=== PATIENT | female | born 1995 | race African-American/Black ===

== ENCOUNTER 2020-07-25 11:33 | Emergency (ER) | payer MEDICAID, OTHER ==
[~2020-07-25] VITALS: Ht 154.9 cm; Wt 83.5 kg
[2020-07-25 12:06] LABS: Urine Bacteria FEW /hpf (None Seen); Urine Blood Negative /uL (Negative); Urine Mucus FEW (None Seen); Urine Specific Gravity 1.024 (1.001-1.035); Urine WBC 1 /hpf (0 - 5)
[2020-07-25 16:50] VITALS: BP 123/62
== END 2020-07-25 16:49 | disposition home or self-care (01) ==
LOC: ER 11:33
DX: O23.41 Unspecified infection of urinary tract in pregnancy, first trimester (principal); Z3A.01 Less than 8 weeks gestation of pregnancy
CPT/HCPCS: 36415; 81001; 84702